=== PATIENT | female | born 1980 | race Caucasian/White ===

== ENCOUNTER 2019-08-21 18:21 | Observation (INO) ==
[2019-08-21] MEDS ORDERED: ZOFRAN IV ONE (18:55)
[2019-08-21] MEDS ORDERED: MORPHINE IV ONE (18:55)
[2019-08-21] MEDS ORDERED: NS 1,000 ML IV ONE (19:00)
[2019-08-21 20:13] LABS: BASO# 0.03 X1000 (0.0-0.2); BASO% 0.2 % (0.0-0.8); EOS# 0.22 X1000 (0.0-0.7); EOS% 1.1 % (0.0-10.0); HEMATOCRIT 44.6 % (37.0-47.0); HEMOGLOBIN 15.7 g/dL (12.0-16.0); IMM GRAN# 0.06 X1000 (0.0-0.04); IMM GRAN% 0.3 % (0.0-0.5); LYMPH# 0.83 X1000 (1.2-3.4); LYMPH% 4.3 % (20.5-51.1); MCH 31.4 PG (27-31); MCHC 35.2 g/dL (33-37); MCV 89.2 FL (81-99); MONO# 0.87 X1000 (0.11-0.59); MONO% 4.5 % (1.7-9.3); MPV 10.1 FL (7.4-10.4); NEUT# 17.22 X1000 (1.4-6.5); NEUT% 89.6 % (42.2-75.2); PLT 270 X1000 (130-400); RDW 12.4 % (11.5-14.5); WBC 19.23 X1000 (4.8-10.8)
[2019-08-21] MEDS ORDERED: VANCOMYCIN 1 GM/NS 1 GM/250 ML IVPB IV ONE (20:18)
[2019-08-21 20:24] LABS: AGAP 16; ALBUMIN 3.9 g/dL (3.5-5.0); ALKALINE PHOSPHATASE 99 U/L (32-104); BUN 6 mg/dL (8-22); CHLORIDE 97 mmol/L (98-107); COSMO 266; CREATININE 0.5 mg/dL (0.5-0.9); ESTIMATED GFR > 60; GLUCOSE 99 mg/dL (70-104); GOT 19 U/L (10-30); GPT 13 U/L (10-36); POTASSIUM 3.3 mmol/L (3.5-5.1); SODIUM 134 mmol/L (136-145); TCO2 21 mmol/L (25-35); TOTAL PROTEIN 7.2 g/dL (6.3-8.3)
--- NOTE | 2019-08-21 21:29 | PROVIDER DOCUMENTATION ---
This chart was entered by Lindsey Garg Scribe, acting as scribe for Alvaro Jeffries MD. HPI-General Adult - General Chief Complaint: Facial Pain Stated Complaint: SENT BY [facility] Time Seen by Provider: 08/21/19 19:32 Source: patient, family Allergies/Adverse Reactions: Patient Allergies Allergy/AdvReac Type Severity Reaction Status Date / Time No Known Allergies Allergy Verified 12/03/14 03:44 Home Medications: Home Medication List Medication Instructions Recorded Confirmed Last Taken Type No Home Medications 12/03/14 12/03/14 Unknown History - History of Present Illness -Gen Adult Nature of Presenting Problems: 38 yowf presents to the ed with c/o erythema to face and left ear pain and sw ollen acute onset this afternoon. pt sts was given a shot of clindamycin after sx onset and sx continued to worsen today. Location of Pain/Injury: reports: face Pain Radiation: reports: no radiation Quality of Pain: reports: burning Severity: reports: severe Onset/Duration: reports: this afternoon Timing: reports: still present, constant, getting worse Context/Activities at Onset: reports: light activity Associated Symptoms: reports: EENT symptoms (coated tongue), other (face pain). denies: back/neck pain, chest pain, cough, fever/chills, nausea, shortness of breath, vomiting Similar Symptoms Previously?: No Recently seen or treated by another doctor?: Yes ([facility] ADMISSIONS in ed) Review of Systems - Adult - REVIEW OF SYSTEMS - ADULT Constitutional: denies: chills, fever Eyes: reports: no symptoms reported Ears, Nose, Mouth & Throat: reports: see HPI, other (facial pain with erythema and swelling noted) Cardiovascular: denies: chest pain, palpitations Respiratory: denies: cough, shortness of breath, wheezing Gastrointestinal: denies: abdominal pain, diarrhea, nausea, vomiting Genitourinary: reports: no symptoms reported Musculoskeletal: reports: no symptoms reported Integumentary: reports: no symptoms reported Neurological: reports: no symptoms reported Psychiatric: reports: no symptoms reported Endocrine: reports: no symptoms reported Hematologic/Lymphatic: reports: no symptoms reported Allergic/Immunologic: reports: no symptoms reported All Other Systems: Reviewed and Negative Past History - Adult - PAST MEDICAL HISTORY-ADULT Review of Records: reports: Old Records Reviewed, Nursing Assessment Review, Medications Reviewed Major Childhood Illnesses: reports: denies history Cardiovascular: reports: denies history Respiratory: reports: denies history Gastrointestinal: reports: denies history Obstetrical/Gynecological: reports: denies history Genitourinary: reports: kidney stones Musculoskeletal: reports: denies history Neurological: reports: denies history Endocrine/Immune: reports: denies history Other Conditions: reports: denies history - PRIOR SURGERIES/PROCEDURES Surgical/Procedure History: reports: hysterectomy, , orthopedic (extremity) - PRIOR HOSPITALIZATIONS Prior Hospitalizations: reports: for other non-related - IMMUNIZATION STATUS Childhood Immunizations: See Nurse Assessment Flu Vaccine: See Nurse Assessment - FAMILY HISTORY Family History: reviewed, not pertinent - SOCIAL HISTORY Smoking: cigarettes, less than 1 pack/day Provider spent 3-5 mins advising pt. on dangers of tobacco.: Discussed manners to quit use, and f/u contacts for add'l counseling. Substance Use: denies Living Situation: family Physical Exam-General - PHYSICAL EXAM-ADULT Initial Vital Signs Reviewed: Yes - CONSTITUTIONAL General Appearance: alert, moderate distress (face is swollen and red). negative: appears well - EYES Eyes: PERRL/EOMI - HEAD, EARS, NOSE, MOUTH & THROAT HENMT: other (coated tongue left ear is red and swollen). negative: normal ENT inspection - NECK Neck: non-tender, full range of motion, normal inspection - RESPIRATORY Respiratory: chest non-tender, lungs clear, normal breath sounds - CARDIOVASCULAR Cardiovascular: normal peripheral pulses, tachycardia (120) - CHEST (BREASTS) Chest/Breast: deferred - GASTROINTESTINAL (ABDOMEN) Abdominal Exam: normal bowel sounds, non tender, soft - GENITOURINARY Female Genitalia/Pelvic Exam: deferred Rectal Exam: deferred Hemoccult Exam: deferred - LYMPHATIC Lymphatic: no adenopathy - MUSCULOSKELETAL Back Exam: no CVA tenderness, no vertebral tenderness Extremity: normal range of motion, non-tender, normal gait, normal inspection - SKIN Integumentary: normal turgor, warm/dry, erythema (to face and left ear) - NEUROLOGIC Neurologic: grossly normal - PSYCHIATRIC Psych/Mental Status: normal mood/affect, normal thought content, normal thought process, oriented x 3 Progress - PLAN OF CARE/RESULTS Progress/Plan/Lab Results: Vital Signs - 8 hr 08/20/ 18:46 Temperature 98.5 F Pulse Rate 120 H Respiratory Rate 16 Blood Pressure 136/81 O2 Sat by Pulse Oximetry 97 Orders Category Date Time Status NEWS Score 2-4:Order NEWS Lactate Series NOW Care 08/21/19 18:48 Active Saline Loc NOW Care 08/21/19 18:55 Active BLOOD CULTURE [BLDCUL] Stat Lab 08/21/19 18:55 Uncollected CBC WITH ELECTRONIC DIFF [HEME] Stat Lab 08/21/19 18:55 Uncollected COMPREHENSIVE METABOLIC PANEL [CHEM] Stat Lab 08/21/19 18:55 Uncollected LACTATE, PLASMA [CHEM] Lab 08/21/19 19:00 Uncollected LACTATE, PLASMA [CHEM] Lab 08/21/19 22:00 Uncollected LACTATE, PLASMA [CHEM] Lab 08/22/19 01:00 Uncollected 0.9% Sodium Chloride Inj [Ns] 1,000 ml Med 08/21/19 19:00 Active IV 999 mls/hr Morphine Med 08/21/19 18:55 Discontinued 4 mg IV NOW ONE Ondansetron [Zofran] Med 08/21/19 18:55 Discontinued 4 mg IV NOW ONE Result Diagrams: 08/21/19 19:55 - REASSESSMENT Reassessment #1 Time Reassessed: 19:57 Status: improving (pain has improved with medication) - CONSULTS/PCP/HOSPITALIST Notification #1 *Consult/PCP/Hospitalist*: hospitalist dr yen Time Discussed: 20:19 Consult Disposition: Will see in ED, Admit Departure - Departure Date of Disposition Decision: 08/21/19 Time of Disposition Decision: 19:30 DIAGNOSIS: Erysipelas, Tobacco use disorder Disposition: HOME 01 Certified Medical Emergency: Emergent Condition: Stable Additional Instructions: ED Follow Up Instructions: You have been treated by a care provider in the Emergency Department. These instructions are being provided to you so you can have an understanding of how to care for yourself upon discharge. Upon discharge from the Emergency Department, you are responsible for making arrangements for follow-up care by a physician of your choice. Take all prescribed medications as directed. Return to the Emergency Department immediately for any new or worsening symptoms. You may call the Physician Referral phone number at [phone] to obtain a list of Physicians who are taking new patients. Referrals and Follow-Ups: Terri Mcgregor MD [Primary Care Provider] - - Critical Care Note This patient required my direct & personal management of CC.: No Attestation - Physician/ VICKI Attestation Patient care was provided by Advanced Practice Provider:: No The physician spent face to face time with patient:: Yes Advanced Practice Provider documentation review:: Supervising physician onsite and consulted in the evaluation and care of this patient. The physician did have a face to face encounter with the patient. This chart was documented by the indicated scribe, (Lindsey Garg Scribe) and accurately reflects the services I performed and decisions made by me, Alvaro Jeffries MD, as attested by the provider's signature.
[2019-08-22] MEDS ORDERED: TYLENOL PO PRN ×2 (02:05→07:23)
[2019-08-22] MEDS ORDERED: ZOFRAN IV PRN (07:23)
[2019-08-22] MEDS ORDERED: VANCOMYCIN IV PER PHARMACY MISC SCH (07:30)
[2019-08-22 08:00] LABS: HEMATOCRIT 40.9 % (37.0-47.0); HEMOGLOBIN 14.2 g/dL (12.0-16.0); MCH 31.1 PG (27-31); MCHC 34.7 g/dL (33-37); MCV 89.5 FL (81-99); RBC 4.57 XMIL (4.2-5.4); RDW 12.3 % (11.5-14.5); WBC 12.02 X1000 (4.8-10.8)
[2019-08-22 08:40] LABS: AGAP 15; ALBUMIN 3.4 g/dL (3.5-5.0); ALKALINE PHOSPHATASE 95 U/L (32-104); BUN 7 mg/dL (8-22); CALCIUM 8.5 mg/dL (8.8-10.2); CHLORIDE 104 mmol/L (98-107); COSMO 274; CREATININE 0.4 mg/dL (0.5-0.9); ESTIMATED GFR > 60; GLUCOSE 101 mg/dL (70-104); GOT 18 U/L (10-30); GPT 12 U/L (10-36); POTASSIUM 3.4 mmol/L (3.5-5.1); SODIUM 138 mmol/L (136-145); TCO2 20 mmol/L (25-35); TOTAL PROTEIN 6.2 g/dL (6.3-8.3)
[2019-08-22] MEDS ORDERED: VANCOMYCIN 1,750 MG in NS 250 ML IV ONE (09:00)
[2019-08-22] MEDS: ZOSYN 3.375 GM in NS 50 ML IV SCH ×3 (09:11→19:11)
[2019-08-22] MEDS: NORCO-5 PO PRN ×3 (09:32→23:07)
[2019-08-22] MEDS ORDERED: BENADRYL PO PRN (11:51)
[2019-08-22] MEDS ORDERED: VANCOMYCIN 1,300 MG in NS 250 ML IV SCH (21:00)
[2019-08-23] MEDS: ZOSYN 3.375 GM in NS 50 ML IV SCH ×4 (01:19→20:36)
--- NOTE | 2019-08-23 04:42 | HISTORY AND PHYSICAL ---
CHIEF COMPLAINT: Facial swelling. HISTORY OF PRESENT ILLNESS: Patient is a very pleasant 38-year-old female who actually had initially gone to [facility] where she was noted to have marked swelling of her face, upper cheeks, lower forehead, left eyelids. ALLERGIES: No known drug allergies. MEDICATIONS: No current medications. REVIEW OF SYSTEMS: The patient denies any fevers, chills, cough, congestion, chest pain, palpitations. Denies any dysuria, urinary frequency, constipation, melena, hematochezia. Does have facial pain with erythema for the past several days. PAST MEDICAL HISTORY: None. SURGICAL HISTORY: Hysterectomy, , orthopedic surgery. FAMILY HISTORY: Noncontributory. SOCIAL HISTORY: Patient does smoke less than a pack a day. Does not drink alcohol or use illicit substances. PHYSICAL EXAMINATION: VITAL SIGNS: Reviewed. Temperature 98 degrees, pulse 120s, respiratory 16, BP 136/81, saturating 96percent on room air. GENERAL: Patient is awake, pleasant. No distress. HEENT: Normocephalic. NECK: Supple. CARDIOVASCULAR: Regular rate. CHEST: Clear. ABDOMEN: Soft. EXTREMITIES: Moves all extremities. SKIN: Has swelling and erythema to her face, mainly the left side, left eyelids upper and lower, and left the ear, erythematous. ASSESSMENT: 1. Leukocytosis. 2. Cellulitis, face. 3. Chronic tobacco abuse. PLAN: Discussed with patient the importance of stopping smoking. We will place her in the hospital on IV fluids, antibiotics and we will follow. cc: Lester Cortes MD MTDD
[2019-08-23] MEDS: NORCO-5 PO PRN ×5 (04:43→22:53)
[2019-08-23] MEDS: SOLU-MEDROL IV SCH ×3 (09:00→23:26)
[2019-08-24] MEDS: ZOSYN 3.375 GM in NS 50 ML IV SCH ×3 (01:34→14:11)
[2019-08-24] MEDS: NORCO-5 PO PRN ×2 (03:27→09:08)
[2019-08-24] MEDS: SOLU-MEDROL IV SCH (09:09)
--- NOTE | 2019-08-24 11:47 | DISCHARGE SUMMARY ---
ADMISSION DATE: 08/22/2019 DISCHARGE DATE: 08/24/2019 PRIMARY CARE PROVIDER: Dr. Terri Mcgregor. PERTINENT PROCEDURES: None. DISCHARGE DIAGNOSES: 1. Leukocytosis. 2. Facial cellulitis. 3. Chronic tobacco abuse. HOSPITAL COURSE: Ms. Bauman is a 38-year-old female, who claims no past medical history, had initially gone to [facility] where she was noted to have marked swelling to her face, upper cheeks, lower forehead and eyelids. She was noted to have leukocytosis, mild hypokalemia, mild hyponatremia, and was admitted for IV antibiotics for facial cellulitis. She has had an uneventful hospital course and will be discharged home today. VITAL SIGNS: Temperature is 98.1 degrees, heart rate 63, respirations 16, blood pressure 125/61, O2 is 96% on room air. DISCHARGE DIET: Regular. DISCHARGE MEDICATIONS: 1. Augmentin 875/125 one each p.o. b.i.d. for 10 days. 2. Medrol Dosepak 4 mg p.o. as directed. 3. Tylenol 650 mg p.o. q. 6 hours p.r.n. FOLLOWUP: Ms. Bauman is being discharged home. She is to take all medications as prescribed. She will follow up with the PCP of her choosing; a list is provided to her. She can return to the ED or call 911 for any worsening of symptoms. Dictated by JAYSHREE Dove for Lester Cortes MD cc: Lester Cortes MD
[2019-08-24 12:18] VITALS: BP 97/58
--- NOTE | 2019-08-24 12:57 | DISCHARGE SUMMARY ---
ADMISSION DATE: 08/21/2019 DISCHARGE DATE: 08/24/2019 On discharge, patient is much improved. Her facial swelling has all but completely disappeared. She is in no current distress. She is eating and drinking without any difficulties and, therefore, we will discharge her home. We will discharge her on antibiotics and a Medrol Dosepak. I feel as though atopic dermatitis may be more of the cause of her current issues, as she had marked improvement after the addition of the steroid. cc: Lester Cortes MD
--- NOTE | 2019-08-26 09:12 | PROGRESS NOTE ---
DATE: 08/23/2019 PLEASE REDICTATE CUTS IN AND OUT. cc: Lester Cortes MD
== END 2019-08-24 14:10 | disposition home or self-care (01) ==
LOC: P.ED 18:21 → P.MEDSURG 18:22 → INTOOBSV 18:22
PROVIDERS: ATTEND Family Medicine